=== PATIENT | female | born 1990 | race Caucasian/White ===

== ENCOUNTER 2016-10-23 14:58 | Emergency (ER) | payer OTHER ==
--- NOTE | 2016-10-23 15:16 | ED NURSING NOTES ---
Clinical Report - Nurses [facility] [address] [place] [place] [address] 10/23/2016 15:02 Patient: PARAM AGUAYO TRIAGE Triage time 15:07. Acuity: LEVEL 5. Chief Complaint: TOOTHACHE. Alert. No acute distress. GEN COMA SCORE: Gen Coma Scale: 15- eyes open spontaneously (4); best verbal response- oriented x 4 (5); best motor response- obeys commands (6). --15:14 Leanne South R.N. 15:07 10/23/16. BP: 119/66. HR: 98. RR: 18. O2 saturation: 99%. Temp: 98.3 F (oral). Pain level now: 03/12. --15:14 Leanne South R.N. Weight: 72.5 kg. Height/Length: 67 inches. BMI: 25.1. --15:13 Leanne South R.N. Medications Control Pills. --15:10 Leanne South R.N. Medication/allergy information source: the patient. --15:14 Leanne South R.N. Allergies No Known Drug Allergy. --15:10 Leanne South R.N. History Arrived by private vehicle. Historian: patient. Accompanied by (children). Primary physician (Steven). This started today. 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 PAST MEDICAL HX: Last normal menstrual period- Oct 2016. SOCIAL HX: Heavy tobacco smoker- less than 1 pack per day. Occasional alcohol use. No drug use. FALL RISK ASSESSMENT: Fall risk assessment completed. No fall risk identified. FUNCTIONAL ASSESSMENT: Functional assessment: no impairments noted. LEARNING NEEDS ASSESSMENT: The learning needs assessment revealed no barriers. --15:14 Leanne South R.N. PROBLEMS: Corneal Abrasion. Herpes Zoster. Fractured Metacarpal. Dysfunctional Uterine Bleeding. Contusion. Cervical Strain. Fall. Sick Contact. Head Injury. Headache. Sinusitis. Spontaneous (Miscarriage). Vaginal Bleeding. Dental Caries. Dental Pain. Tension-Type Headache. Chronic Headache. . Pharyngitis. Immunizations. LNMP - Last Normal Menstrual Period. Melanoma . --15:11 Leanne South R.N. ADDITIONAL SURGERIES: Melanoma removal . Tooth extraction. --15:11 Leanne South R.N. Assessment GENERAL / NEURO / PSYCH: Alert. Oriented X 4. Appears in no acute distress. Patient appears calm and cooperative. RESPIRATORY: Respirations not labored. SKIN: Skin is warm and dry. --15:14 Leanne South R.N. Interventions ID band on patient. To treatment room. --15:14 Leanne South R.N. PHYSICAL ASSESSMENT 15:18 10/23/16. Ambulatory to room. GENERAL / NEURO / PSYCH: Alert. Oriented X 4. Appears in no acute distress. RESPIRATORY: Respirations not labored. SKIN: Skin is warm and dry. --15:18 Leanne South R.N. NURSING PROGRESS NOTES 15:18 10/23/16. Head of bed elevated. Call light placed in reach. Side rails up x 1. Bed placed in lowest position. Brakes of bed on. --15:18 Leanne South R.N. 15:20 10/23/2016 Amoxicillin PO 500 mg given. --15:59 Leanne South R.N. 15:20. The patient is calm. Overall patient status is the same- she states feels the same. GENERAL / NEURO / PSYCH: Alert. Oriented X 4. RESPIRATORY: No respiratory distress. SKIN: Skin is warm and dry. --16:11 Leanne South R.N. DISPOSITION / DISCHARGE Departure time: 1520. Condition at departure: stable. No learning barriers present. Discharge instructions provided and reviewed with the patient. Reviewed medication(s). Prescription(s) given to the patient. Patient verbalized understanding. Written instructions provided in Indonesian. The patient was discharged home and accompanied by children. She left the Emergency Department ambulatory and via private vehicle. FALL RISK ASSESSMENT: Fall risk assessment completed. No fall risk identified. --16:10 Leanne South R.N. 15:29 10/23/16. Pain level now: 7/10. Additional comments: here under an hour. --16:10 Leanne South R.N. Locked/Released at 10/23/2016 16:12 by Leanne South R.N.
--- NOTE | 2016-10-23 15:16 | ED CLINICAL REPORT ---
Clinical Report - Physicians/Mid Levels [facility] [address] [place] [address] 10/23/2016 15:02 [id number] Time Seen: 15:04 Oct 23 2016. Arrived- By private vehicle. Historian- patient. HISTORY OF PRESENT ILLNESS Chief Complaint: DENTAL PAIN. This started just prior to arrival today and is still present. Pain described as mild. The patient has had toothache. (Dental pain over the last 24 hours, off and on, worse with cold to the area as well as air. Denies difficulty swallowing. Denies facial swelling. No recent dental appt or dental trauma.). REVIEW OF SYSTEMS No fever, cough, difficulty breathing, diarrhea or headache. All systems otherwise negative, except as recorded above. SOCIAL HISTORY Smoker- current status unknown. Alcohol use. No drug use. ADDITIONAL NOTES The nursing notes have been reviewed. PHYSICAL EXAM Vital Signs: 10/23/2016 15:07 BP: 119/66. HR: 98. RR: 18. O2 saturation: 99%. Temp: 98.3 F. Pain level now: 6/10. Appearance: Alert. Head: Normal external inspection. ENT: Dental tenderness. Lips normal. Gums normal. No tonsillar exudate, peritonsillar mass or trismus. (left upper canine tendernss, no surrounding erythema, no mass). Neck: Trachea midline. No adenopathy. No lymphadenopathy. CVS: Normal heart rate and rhythm. Heart sounds normal. Respiratory: No respiratory distress. Breath sounds normal. Neuro: Oriented X 3. PROGRESS AND PROCEDURES Course of Care: Uvula midline, no trismus, no facial swelling. No distress. pt stable. no palpable abscess. Afebrile. Patient is stable. Patient/family counseled. Differential Diagnosis: I considered palatine tonsillitis, mononucleosis, peritonsillar cellulitis, parapharyngeal abscess, sinusitis and foreign body as a possible cause of sore throat in this patient. This is a partial list of diagnoses considered. Disposition: Discharged. Condition: good. CLINICAL IMPRESSION Moderate dental pain. INSTRUCTIONS Drink plenty of fluids. Prescription Medications: Amoxicillin 500 mg tablets: Take 1 orally every 8 hours for 10 days. Dispense thirty (30). No refills. Follow-up: Follow up with a specialist. Understanding of the discharge instructions verbalized by patient. (Electronically signed by Sumi Kate P.A.-C 10/23/2016 15:35)
--- NOTE | 2016-10-23 15:16 | ED ORDER SUMMARY ---
..... Patient: PARAM AGUAYO OrderSheet [facility] VisitID: [id number] [address] [place] [address] [place] [address] 25y, F Registration Date/Time: 10/23/2016 ORDER SHEET Weight: 72.5 kg Allergies: No Known Drug Allergy GENERAL ORDERS: MEDICATION ORDERS: Amoxicillin PO 500 mg (NOW) (15:16 10/23/2016 Nicole Conrad) (Ack 15:18 Estee R.Miguel) (15:59 Estee Adorno.Miguel) IV FLUIDS: ORDER SHEET NOTES: [Electronically signed by Sumi Kate P.A.-C (15:35 10/23/2016)] [Electronically signed by Leanne South R.N. (16:12 10/23/2016)] [Electronically locked/signed by Leanne South R.N. (16:12 10/23/2016)]
--- NOTE | 2016-10-23 15:16 | ED ORDER SUMMARY ---
..... Patient: PARAM AGUAYO OrderSheet [facility] VisitID: [id number] [address] [place] [address] 25y, F Registration Date/Time: 10/23/2016 ORDER SHEET Weight: 72.5 kg Allergies: No Known Drug Allergy GENERAL ORDERS: MEDICATION ORDERS: Amoxicillin PO 500 mg (NOW) (15:16 10/23/2016 Nicole Conrad) (Ack 15:18 Estee R.Miguel) (15:59 Estee Adorno.Miguel) IV FLUIDS: ORDER SHEET NOTES: [Electronically signed by Sumi Kate P.A.-C (15:35 10/23/2016)] [Electronically signed by Leanne South R.N. (16:12 10/23/2016)] [Electronically locked/signed by Leanne South R.N. (16:12 10/23/2016)]
--- NOTE | 2016-10-23 15:16 | ED CLINICAL REPORT ---
Clinical Report - Physicians/Mid Levels [facility] [address] [place] [place] [address] 10/23/2016 15:02 [id number] Time Seen: 15:04 Oct 23 2016. Arrived- By private vehicle. Historian- patient. HISTORY OF PRESENT ILLNESS Chief Complaint: DENTAL PAIN. This started just prior to arrival today and is still present. Pain described as mild. The patient has had toothache. (Dental pain over the last 24 hours, off and on, worse with cold to the area as well as air. Denies difficulty swallowing. Denies facial swelling. No recent dental appt or dental trauma.). REVIEW OF SYSTEMS No fever, cough, difficulty breathing, diarrhea or headache. All systems otherwise negative, except as recorded above. SOCIAL HISTORY Smoker- current status unknown. Alcohol use. No drug use. ADDITIONAL NOTES The nursing notes have been reviewed. PHYSICAL EXAM Vital Signs: 10/23/2016 15:07 BP: 119/66. HR: 98. RR: 18. O2 saturation: 99%. Temp: 98.3 F. Pain level now: 6/10. Appearance: Alert. Head: Normal external inspection. ENT: Dental tenderness. Lips normal. Gums normal. No tonsillar exudate, peritonsillar mass or trismus. (left upper canine tendernss, no surrounding erythema, no mass). Neck: Trachea midline. No adenopathy. No lymphadenopathy. CVS: Normal heart rate and rhythm. Heart sounds normal. Respiratory: No respiratory distress. Breath sounds normal. Neuro: Oriented X 3. PROGRESS AND PROCEDURES Course of Care: Uvula midline, no trismus, no facial swelling. No distress. pt stable. no palpable abscess. Afebrile. Patient is stable. Patient/family counseled. Differential Diagnosis: I considered palatine tonsillitis, mononucleosis, peritonsillar cellulitis, parapharyngeal abscess, sinusitis and foreign body as a possible cause of sore throat in this patient. This is a partial list of diagnoses considered. Disposition: Discharged. Condition: good. CLINICAL IMPRESSION Moderate dental pain. INSTRUCTIONS Drink plenty of fluids. Prescription Medications: Amoxicillin 500 mg tablets: Take 1 orally every 8 hours for 10 days. Dispense thirty (30). No refills. Follow-up: Follow up with a specialist. Understanding of the discharge instructions verbalized by patient. (Electronically signed by Sumi Kate P.A.-C 10/23/2016 15:35)
--- NOTE | 2016-10-23 15:16 | ED NURSING NOTES ---
Clinical Report - Nurses [facility] [address] [place] [place] [address] 10/23/2016 15:02 Patient: PARAM AGUAYO TRIAGE Triage time 15:07. Acuity: LEVEL 5. Chief Complaint: TOOTHACHE. Alert. No acute distress. GEN COMA SCORE: Gen Coma Scale: 15- eyes open spontaneously (4); best verbal response- oriented x 4 (5); best motor response- obeys commands (6). --15:14 Leanne South R.N. 15:07 10/23/16. BP: 119/66. HR: 98. RR: 18. O2 saturation: 99%. Temp: 98.3 F (oral). Pain level now: 03/12. --15:14 Leanne South R.N. Weight: 72.5 kg. Height/Length: 67 inches. BMI: 25.1. --15:13 Leanne South R.N. Medications Control Pills. --15:10 Leanne South R.N. Medication/allergy information source: the patient. --15:14 Leanne South R.N. Allergies No Known Drug Allergy. --15:10 Leanne South R.N. History Arrived by private vehicle. Historian: patient. Accompanied by (children). Primary physician (Steven). This started today. 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 PAST MEDICAL HX: Last normal menstrual period- Oct 2016. SOCIAL HX: Heavy tobacco smoker- less than 1 pack per day. Occasional alcohol use. No drug use. FALL RISK ASSESSMENT: Fall risk assessment completed. No fall risk identified. FUNCTIONAL ASSESSMENT: Functional assessment: no impairments noted. LEARNING NEEDS ASSESSMENT: The learning needs assessment revealed no barriers. --15:14 Leanne South R.N. PROBLEMS: Corneal Abrasion. Herpes Zoster. Fractured Metacarpal. Dysfunctional Uterine Bleeding. Contusion. Cervical Strain. Fall. Sick Contact. Head Injury. Headache. Sinusitis. Spontaneous (Miscarriage). Vaginal Bleeding. Dental Caries. Dental Pain. Tension-Type Headache. Chronic Headache. . Pharyngitis. Immunizations. LNMP - Last Normal Menstrual Period. Melanoma . --15:11 Leanne South R.N. ADDITIONAL SURGERIES: Melanoma removal . Tooth extraction. --15:11 Leanne South R.N. Assessment GENERAL / NEURO / PSYCH: Alert. Oriented X 4. Appears in no acute distress. Patient appears calm and cooperative. RESPIRATORY: Respirations not labored. SKIN: Skin is warm and dry. --15:14 Leanne South R.N. Interventions ID band on patient. To treatment room. --15:14 Leanne South R.N. PHYSICAL ASSESSMENT 15:18 10/23/16. Ambulatory to room. GENERAL / NEURO / PSYCH: Alert. Oriented X 4. Appears in no acute distress. RESPIRATORY: Respirations not labored. SKIN: Skin is warm and dry. --15:18 Leanne South R.N. NURSING PROGRESS NOTES 15:18 10/23/16. Head of bed elevated. Call light placed in reach. Side rails up x 1. Bed placed in lowest position. Brakes of bed on. --15:18 Leanne South R.N. 15:20 10/23/2016 Amoxicillin PO 500 mg given. --15:59 Leanne South R.N. 15:20. The patient is calm. Overall patient status is the same- she states feels the same. GENERAL / NEURO / PSYCH: Alert. Oriented X 4. RESPIRATORY: No respiratory distress. SKIN: Skin is warm and dry. --16:11 Leanne South R.N. DISPOSITION / DISCHARGE Departure time: 1520. Condition at departure: stable. No learning barriers present. Discharge instructions provided and reviewed with the patient. Reviewed medication(s). Prescription(s) given to the patient. Patient verbalized understanding. Written instructions provided in Italian. The patient was discharged home and accompanied by children. She left the Emergency Department ambulatory and via private vehicle. FALL RISK ASSESSMENT: Fall risk assessment completed. No fall risk identified. --16:10 Leanne South R.N. 15:29 10/23/16. Pain level now: 7/10. Additional comments: here under an hour. --16:10 Leanne South R.N. Locked/Released at 10/23/2016 16:12 by Leanne South R.N.
--- NOTE | 2016-10-23 16:12 | ED MAR SUMMARY ---
..... Medication Administration Record [address] [place] [address] Patient: PARAM AGUAYO Visit ID: [id number] 25y, F Weight: 72.5 kg Height/Length: 67 in BMI: 25.1 ALLERGIES: No Known Drug Allergy Given 15:20 10/23/2016 Leanne South RTalita Medication Administered: AMOXICILLIN [PO], Dose: 500 mg PO. Medication Ordered: Amoxicillin PO 500 mg (NOW).
--- NOTE | 2016-10-23 16:12 | ED MED RECONCILIATION SUMMARY ---
Patient: PARAM AGUAYO Medication Reconciliation Report [facility] VisitID: [id number] [address] [place] [address] 25y, F Registration Date/Time: 10/23/2016 Weight: 72.5 kg Height/Length: 67 in. BMI: 25.1 ALLERGIES: No Known Drug Allergy The patient's Home Medications are listed below: THE FOLLOWING MEDICATIONS NEED TO BE RECONCILED: Control Pills The source(s) of the original Home Medication information: patient The following Medications were given to the patient in the Emergency Department: Amoxicillin [PO] PO 500 mg, administered: 10/23/2016 3:20:00 PM The following Medications were prescribed to the patient: Amoxicillin 500 mg tablets: Take 1 orally every 8 hours for 10 days. Dispense thirty (30). No refills. -- Sumi Kate P.A.-C
--- NOTE | 2016-10-23 16:12 | ED DISCHARGE INSTRUCTIONS ---
Patient: PARAM AGUAYO General Instructions [facility] VisitID: [id number] [place] [address] 25[place], F Registration Date/Time: 10/23/2016 Moderate dental pain. INSTRUCTIONS Drink plenty of fluids. Prescription Medications: Amoxicillin 500 mg tablets: Take 1 orally every 8 hours for 10 days. Dispense thirty (30). No refills. Follow-up: Follow up with a specialist. Understanding of the discharge instructions verbalized by patient. ADDITIONAL INFORMATION Dental Pain A crack or cavity in the tooth, which exposes the sensitive inner area of the tooth can cause tooth pain. An infection in the gum or the root of the tooth can cause pain and swelling. The pain is often made worse by drinking hot or cold fluids, or biting on hard foods. Pain may spread from the tooth to the ear or jaw on the same side. Home Care: Avoid hot and cold foods and liquids since your tooth may be sensitive to temperature changes. If your tooth is chipped or cracked, or if there is a large open cavity, apply OIL OF CLOVES (available tzxb-qhz-wznsdzt in drug stores) directly to the tooth to reduce pain. Some pharmacies carry an sehc-zay-kpnzyjy "toothache kit." This contains a paste, which can be applied over the exposed tooth to decrease sensitivity. A cold pack on your jaw over the sore area may help reduce pain. You may use acetaminophen (Tylenol) or ibuprofen (Motrin, Advil) to control pain, unless another medicine was prescribed. [ NOTE: If you have chronic liver or kidney disease or ever had a stomach ulcer or GI bleeding, talk with your doctor before using these medicines.] If you have signs of an infection, an antibiotic will be given. Take it as directed. Follow-Up as directed with a dentist. Your pain may go away with the treatment given. However, only a dentist can fully evaluate and treat the cause and prevent the pain from coming back again. TOOTHACHE IS A SIGN OF DISEASE IN YOUR TOOTH AND SHOULD BE EXAMINED AND TREATED BY A DENTIST. Get Prompt Medical Attention if any of the following occur: Your face becomes swollen or red Pain worsens or spreads to the neck Fever over 100.4 F (38.0 C) Unusual drowsiness; headache or stiff neck; weakness or fainting Pus drains from the tooth Difficulty swallowing or breathing You have been given the following additional information: Dental Pain (Electronically signed by Sumi Kate P.A.-C 10/23/2016 15:35)
--- NOTE | 2016-10-23 16:12 | ED DISCHARGE INSTRUCTIONS ---
Patient: PARAM AGUAYO General Instructions [facility] VisitID: [id number] [place] [address] 25y, F Registration Date/Time: 10/23/2016 Moderate dental pain. INSTRUCTIONS Drink plenty of fluids. Prescription Medications: Amoxicillin 500 mg tablets: Take 1 orally every 8 hours for 10 days. Dispense thirty (30). No refills. Follow-up: Follow up with a specialist. Understanding of the discharge instructions verbalized by patient. ADDITIONAL INFORMATION Dental Pain A crack or cavity in the tooth, which exposes the sensitive inner area of the tooth can cause tooth pain. An infection in the gum or the root of the tooth can cause pain and swelling. The pain is often made worse by drinking hot or cold fluids, or biting on hard foods. Pain may spread from the tooth to the ear or jaw on the same side. Home Care: Avoid hot and cold foods and liquids since your tooth may be sensitive to temperature changes. If your tooth is chipped or cracked, or if there is a large open cavity, apply OIL OF CLOVES (available njqr-mwb-wcgxytu in drug stores) directly to the tooth to reduce pain. Some pharmacies carry an cluk-abk-aebtkat "toothache kit." This contains a paste, which can be applied over the exposed tooth to decrease sensitivity. A cold pack on your jaw over the sore area may help reduce pain. You may use acetaminophen (Tylenol) or ibuprofen (Motrin, Advil) to control pain, unless another medicine was prescribed. [ NOTE: If you have chronic liver or kidney disease or ever had a stomach ulcer or GI bleeding, talk with your doctor before using these medicines.] If you have signs of an infection, an antibiotic will be given. Take it as directed. Follow-Up as directed with a dentist. Your pain may go away with the treatment given. However, only a dentist can fully evaluate and treat the cause and prevent the pain from coming back again. TOOTHACHE IS A SIGN OF DISEASE IN YOUR TOOTH AND SHOULD BE EXAMINED AND TREATED BY A DENTIST. Get Prompt Medical Attention if any of the following occur: Your face becomes swollen or red Pain worsens or spreads to the neck Fever over 100.4 F (38.0 C) Unusual drowsiness; headache or stiff neck; weakness or fainting Pus drains from the tooth Difficulty swallowing or breathing You have been given the following additional information: Dental Pain (Electronically signed by Sumi Kate P.A.-C 10/23/2016 15:35)
--- NOTE | 2016-10-23 16:12 | ED MAR SUMMARY ---
..... Medication Administration Record [address] [place] [address] Patient: PARAM AGUAYO Visit ID: [id number] 25y, F Weight: 72.5 kg Height/Length: 67 in BMI: 25.1 ALLERGIES: No Known Drug Allergy Given 15:20 10/23/2016 Leanne South RTalita Medication Administered: AMOXICILLIN [PO], Dose: 500 mg PO. Medication Ordered: Amoxicillin PO 500 mg (NOW).
--- NOTE | 2016-10-23 16:12 | ED MED RECONCILIATION SUMMARY ---
Patient: PARAM AGUAYO Medication Reconciliation Report [facility] VisitID: [id number] [address] [place] [address] 25y, F Registration Date/Time: 10/23/2016 Weight: 72.5 kg Height/Length: 67 in. BMI: 25.1 ALLERGIES: No Known Drug Allergy The patient's Home Medications are listed below: THE FOLLOWING MEDICATIONS NEED TO BE RECONCILED: Control Pills The source(s) of the original Home Medication information: patient The following Medications were given to the patient in the Emergency Department: Amoxicillin [PO] PO 500 mg, administered: 10/23/2016 3:20:00 PM The following Medications were prescribed to the patient: Amoxicillin 500 mg tablets: Take 1 orally every 8 hours for 10 days. Dispense thirty (30). No refills. -- Sumi Kate P.A.-C
== END 2016-10-23 15:20 | disposition home or self-care (01) ==
LOC: ED SRH 14:58
DX: K08.89 Other specified disorders of teeth and supporting structures (principal)

== ENCOUNTER 2017-02-19 10:56 | Emergency (ER) | payer OTHER ==
--- NOTE | 2017-02-19 11:44 | ED CLINICAL REPORT ---
Clinical Report - Physicians/Mid Levels [facility] [address] [place] [address] 02/19/2017 10:57 Patient: PARAM AGUAYO Time Seen: 11:06; initial patient contact. Arrived- By private vehicle. Historian- patient. HISTORY OF PRESENT ILLNESS Chief Complaint: SORE THROAT. This started today and is still present (persistent). It was gradual in onset and has been constant. Pain described as mild. The patient has had a sore throat and ear pain. No nasal discharge or congestion, toothache or swollen jaw or face. No jaw pain or facial pain. Similar symptoms previously: Several times. Recent medical care: Not recently seen/assessed. REVIEW OF SYSTEMS No fever, cough, difficulty breathing, headache or skin rash. All systems otherwise negative, except as recorded above. PAST HISTORY Corneal Abrasion. Herpes Zoster. Fractured Metacarpal. Dysfunctional Uterine Bleeding. Contusion. Cervical Strain. Fall. Sick Contact. Head Injury. Headache. Sinusitis. Spontaneous (Miscarriage). Vaginal Bleeding. Dental Caries. Dental Pain. Tension-Type Headache. Chronic Headache. . Pharyngitis. Melanoma . ADDITIONAL SURGERIES: Melanoma removal . Tooth extraction. SOCIAL HISTORY Current every day smoker. History of drug use: marijuana. No alcohol use. ADDITIONAL NOTES The nursing notes have been reviewed. PHYSICAL EXAM Vital Signs: 02/19/2017 11:04 BP: 126/65. HR: 92. RR: 16. O2 saturation: 100%. Temp: 98.5 F. Pain level now: 6/10. Have been reviewed as normal. Appearance: Alert. No acute distress. Head: Normal external inspection. ENT: Ears normal. Mild generalized pharyngeal erythema with right tonsillar swelling and exudate and left tonsillar swelling and exudate. No trismus present. No muffled or hoarse voice. The mucous membranes are not dry. Neck: Mild right anterior neck and mild left anterior neck lymphadenopathy present. CVS: Normal heart rate and rhythm. Heart sounds normal. Skin: Normal skin color. No rash. Neuro: Oriented X 3. LABS, X-RAYS, AND EKG Laboratory Tests: Culture, Strep Screen: (LILLIAM: 02/19/2017 11:15) ( [id number] 02/19/2017 11:27) Final results Test Result Flag Units (Reference) RAPID STREP SCREEN - THROAT DATE: 02/19/17 POSITIVE SCREEN: RAPID STREP SCREEN: POSITIVE FOR GROUP A STREP . PROGRESS AND PROCEDURES Disposition: Discharged home in good condition. Condition: good. CLINICAL IMPRESSION Acute streptococcal pharyngitis INSTRUCTIONS Your Current Medications: CONTINUE TAKING THE FOLLOWING MEDICATIONS: None*. Prescription Medications: Penicillin V 500 mg: take 1 tab orally every 12 hours for 10 days. Dispense twenty (20). No refills. Follow-up: Follow up with your doctor in about two days. Call for an appointment. Screening today revealed the patient's blood pressure to be in the pre-hypertensive range. The patient should follow up with a primary care provider for blood pressure management. (Electronically signed by José Luis Ryan Dr. 02/19/2017 12:03)
--- NOTE | 2017-02-19 11:44 | ED ORDER SUMMARY ---
..... Patient: PARAM AGUAYO OrderSheet [facility] VisitID: [id number] [address] [place] [place] [address] 26y, F Registration Date/Time: 02/19/2017 ORDER SHEET Weight: 68.0 kg (stated) Allergies: No Known Drug Allergy GENERAL ORDERS: Culture, Strep Screen Urgent (11:15 02/19/2017 Paola Emanuel) (11:19 Caroline R.N.) MEDICATION ORDERS: Depo-Medrol IM 80 mg (NOW) (11:02/19/2017 Paola Emanuel) (11:38 Caroline R.N.) IV FLUIDS: ORDER SHEET NOTES: [Electronically signed by José Luis Ryan Dr. (12:03 02/19/2017)] [Electronically signed by Harpreet Vázquez R.N. (12:02/19/2017)] [Electronically locked/signed by Harpreet Vázquez R.N. (12:02/19/2017)]
--- NOTE | 2017-02-19 11:44 | ED ORDER SUMMARY ---
..... Patient: PARAM AGUAYO OrderSheet [facility] VisitID: [id number] [address] [place] [address] 26y, F Registration Date/Time: 02/19/2017 ORDER SHEET Weight: 68.0 kg (stated) Allergies: No Known Drug Allergy GENERAL ORDERS: Culture, Strep Screen Urgent (11:15 02/19/2017 Paola Emanuel) (11:19 Caroline R.N.) MEDICATION ORDERS: Depo-Medrol IM 80 mg (NOW) (11:02/19/2017 Paola Emanuel) (11:38 Caroline R.N.) IV FLUIDS: ORDER SHEET NOTES: [Electronically signed by José Luis Ryan Dr. (12:03 02/19/2017)] [Electronically signed by Harpreet Vázquez R.N. (12:02/19/2017)] [Electronically locked/signed by Harpreet Vázquez R.N. (12:02/19/2017)]
--- NOTE | 2017-02-19 11:44 | ED NURSING NOTES ---
Clinical Report - Nurses [facility] [address] [place] [place] [address] 02/19/2017 10:57 Patient: PARAM AGUAYO TRIAGE Triage time 11:Feb 19 2017. Acuity: LEVEL 4. Chief Complaint: SORE THROAT. Alert. No acute distress. SEPSIS SCREEN: Sepsis Screen. Negative (no infection suspected/documented). GEN COMA SCORE: Gen Coma Scale: 15- eyes open spontaneously (4); best verbal response- oriented x 4 (5); best motor response- obeys commands (6). --11:08 Sarahy Barrientos R.N. 11:04 02/19/17. BP: 126/65. HR: 92. RR: 16. O2 saturation: 100%. Temp: 98.5 F. Pain level now: 03/12. --11:08 Sarahy Barrientos R.N. Weight: 68 kg stated. Height/Length: 67 inches Per Patient. BMI: 23.5. --11:06 Sarahy Barrientos R.N. Medications None. --11:04 Sarahy Barrientos R.N. Medication/allergy information source: the patient. --11:08 Sarahy Barrientos R.N. Allergies No Known Drug Allergy. --11:04 Sarahy Barrientos R.N. History Arrived by private vehicle. Historian: patient. Accompanied by family. This started today. She has had moderate right ear pain and has had moderate left ear pain. 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 PAST MEDICAL HX: Immunizations: up-to-date. Last normal menstrual period now. Denies current . SOCIAL HX: Current every day heavy tobacco smoker (cigarette)- less than 1 pack per day. History of occasional drug use: marijuana. No alcohol use. No infectious disease exposure. SELF HARM ASSESSMENT: A self harm assessment was performed. The patient answered "no" to the question "Do you have thoughts of harming or killing yourself?". FALL RISK ASSESSMENT: Fall risk assessment completed. No fall risk identified. NUTRITIONAL RISK ASSESSMENT: The nutritional risk assessment revealed no deficiencies. FUNCTIONAL ASSESSMENT: Functional assessment: no impairments noted. LEARNING NEEDS ASSESSMENT: The learning needs assessment revealed no barriers. ABUSE ASSESSMENT: Abuse assessment: The patient was asked "Do you feel safe in your home?". SKIN INTEGRITY ASSESSMENT: Skin integrity risk assessment completed. No skin integrity risk identified. --11:08 Sarahy Barrientos R.N. PROBLEMS: Corneal Abrasion. Herpes Zoster. Fractured Metacarpal. Dysfunctional Uterine Bleeding. Contusion. Cervical Strain. Fall. Sick Contact. Head Injury. Headache. Sinusitis. Spontaneous (Miscarriage). Vaginal Bleeding. Dental Caries. Dental Pain. Tension-Type Headache. Chronic Headache. . Pharyngitis. Immunizations. LNMP - Last Normal Menstrual Period. Melanoma . --11:05 Sarahy Barrientos R.N. ADDITIONAL SURGERIES: Melanoma removal . Tooth extraction. --11:05 Sarahy Barrientos R.N. Interventions ID band on patient. To room. --11:08 Sarahy Barrientos R.N. PHYSICAL ASSESSMENT GENERAL / NEURO / PSYCH: Alert. Oriented X 4. Appears in no acute distress. HEENT: Right-sided tonsillar swelling. Left-sided tonsillar swelling. Trouble handling secretions (c/o drooling). Mouth within normal limits upon inspection. RESPIRATORY: Respirations not labored. CVS: Capillary refill less than 2 seconds. SKIN: Skin is warm and dry. --11:10 Sarahy Barrientos R.N. NURSING PROGRESS NOTES Head of bed elevated. Two patient identifiers checked. Call light placed in reach. Side rails up x 1. Bed placed in lowest position. Brakes of bed on. --11:10 Sarahy Barrientos R.N. Patient ID band checked for patient name and birthdate: patient confirmed. Throat swab obtained for rapid strep; labeled in the presence of the patient and sent to lab. --11:13 Sarahy Barrientos R.N. 11:38 02/19/2017 Depo-Medrol IM 80 mg given. Given in the right anterior lateral thigh. Allergies verified and confirmed 5 rights. --11:38 Sarahy Barrientos R.N. 12:04 02/19/2017 Depo-Medrol IM Response: no adverse reaction. --12:04 Harpreet Vázquez R.N. DISPOSITION / DISCHARGE Departure time: 1202. Condition at departure: stable. The goals identified in the patient's plan of care were met. No learning barriers present. Discharge instructions provided and reviewed with the patient. Reviewed medication(s) side effects, precautions, dosing and course information (Param verbalizes importance of finishing all prescribed antbx.). Patient verbalized understanding. Written instructions provided in German. ( Param verbalizes understanding of all d/c instructions including need to f/u with PCP. She has no questions and voices no concerns at this time.). The patient was discharged by the physician. She was discharged home and unaccompanied at time of discharge. She left the Emergency Department ambulatory and via private vehicle. [employer] driving. GEN COMA SCORE: [place] Coma Scale: 15- eyes open spontaneously (4); best verbal response- oriented x 4 (5); best motor response- obeys commands (6). --12:04 Harpreet Vázquez R.N. 12:02 02/19/17. BP: 113/73 (regular adult cuff) taken on the left arm, via an automated monitor, while sitting. HR: 73 (normal rate). RR: 14 (regular, unlabored and normal). O2 saturation: 98% on room air. Temp: 98.7 F (oral). Pain level now: 5/10. --12:04 Harpreet Vázquez R.N. Locked/Released at 02/19/2017 12:04 by Harpreet Vázquez R.N.
--- NOTE | 2017-02-19 11:44 | ED NURSING NOTES ---
Clinical Report - Nurses [facility] [address] [place] [place] [address] 02/19/2017 10:57 Patient: PARAM AGUAYO TRIAGE Triage time 11:Feb 19 2017. Acuity: LEVEL 4. Chief Complaint: SORE THROAT. Alert. No acute distress. SEPSIS SCREEN: Sepsis Screen. Negative (no infection suspected/documented). GEN COMA SCORE: Gen Coma Scale: 15- eyes open spontaneously (4); best verbal response- oriented x 4 (5); best motor response- obeys commands (6). --11:08 Sarahy Barrientos R.N. 11:04 02/19/17. BP: 126/65. HR: 92. RR: 16. O2 saturation: 100%. Temp: 98.5 F. Pain level now: 03/12. --11:08 Sarahy Barrientos R.N. Weight: 68 kg stated. Height/Length: 67 inches Per Patient. BMI: 23.5. --11:06 Sarahy Barrientos R.N. Medications None. --11:04 Sarahy Barrientos R.N. Medication/allergy information source: the patient. --11:08 Sarahy Barrientos R.N. Allergies No Known Drug Allergy. --11:04 Sarahy Barrientos R.N. History Arrived by private vehicle. Historian: patient. Accompanied by family. This started today. She has had moderate right ear pain and has had moderate left ear pain. 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 PAST MEDICAL HX: Immunizations: up-to-date. Last normal menstrual period now. Denies current . SOCIAL HX: Current every day heavy tobacco smoker (cigarette)- less than 1 pack per day. History of occasional drug use: marijuana. No alcohol use. No infectious disease exposure. SELF HARM ASSESSMENT: A self harm assessment was performed. The patient answered "no" to the question "Do you have thoughts of harming or killing yourself?". FALL RISK ASSESSMENT: Fall risk assessment completed. No fall risk identified. NUTRITIONAL RISK ASSESSMENT: The nutritional risk assessment revealed no deficiencies. FUNCTIONAL ASSESSMENT: Functional assessment: no impairments noted. LEARNING NEEDS ASSESSMENT: The learning needs assessment revealed no barriers. ABUSE ASSESSMENT: Abuse assessment: The patient was asked "Do you feel safe in your home?". SKIN INTEGRITY ASSESSMENT: Skin integrity risk assessment completed. No skin integrity risk identified. --11:08 Sarahy Barrientos R.N. PROBLEMS: Corneal Abrasion. Herpes Zoster. Fractured Metacarpal. Dysfunctional Uterine Bleeding. Contusion. Cervical Strain. Fall. Sick Contact. Head Injury. Headache. Sinusitis. Spontaneous (Miscarriage). Vaginal Bleeding. Dental Caries. Dental Pain. Tension-Type Headache. Chronic Headache. . Pharyngitis. Immunizations. LNMP - Last Normal Menstrual Period. Melanoma . --11:05 Sarahy Barrientos R.N. ADDITIONAL SURGERIES: Melanoma removal . Tooth extraction. --11:05 Sarahy Barrientos R.N. Interventions ID band on patient. To room. --11:08 Sarahy Barrientos R.N. PHYSICAL ASSESSMENT GENERAL / NEURO / PSYCH: Alert. Oriented X 4. Appears in no acute distress. HEENT: Right-sided tonsillar swelling. Left-sided tonsillar swelling. Trouble handling secretions (c/o drooling). Mouth within normal limits upon inspection. RESPIRATORY: Respirations not labored. CVS: Capillary refill less than 2 seconds. SKIN: Skin is warm and dry. --11:10 Sarahy Barrientos R.N. NURSING PROGRESS NOTES Head of bed elevated. Two patient identifiers checked. Call light placed in reach. Side rails up x 1. Bed placed in lowest position. Brakes of bed on. --11:10 Sarahy Barrientos R.N. Patient ID band checked for patient name and birthdate: patient confirmed. Throat swab obtained for rapid strep; labeled in the presence of the patient and sent to lab. --11:13 Sarahy Barrientos R.N. 11:38 02/19/2017 Depo-Medrol IM 80 mg given. Given in the right anterior lateral thigh. Allergies verified and confirmed 5 rights. --11:38 Sarahy Barrientos R.N. 12:04 02/19/2017 Depo-Medrol IM Response: no adverse reaction. --12:04 Harpreet Vázquez R.N. DISPOSITION / DISCHARGE Departure time: 1202. Condition at departure: stable. The goals identified in the patient's plan of care were met. No learning barriers present. Discharge instructions provided and reviewed with the patient. Reviewed medication(s) side effects, precautions, dosing and course information (Param verbalizes importance of finishing all prescribed antbx.). Patient verbalized understanding. Written instructions provided in Divehi. ( Param verbalizes understanding of all d/c instructions including need to f/u with PCP. She has no questions and voices no concerns at this time.). The patient was discharged by the physician. She was discharged home and unaccompanied at time of discharge. She left the Emergency Department ambulatory and via private vehicle. Director Gift driving. GEN COMA SCORE: [place] Coma Scale: 15- eyes open spontaneously (4); best verbal response- oriented x 4 (5); best motor response- obeys commands (6). --12:04 Harpreet Vázquez R.N. 12:02 02/19/17. BP: 113/73 (regular adult cuff) taken on the left arm, via an automated monitor, while sitting. HR: 73 (normal rate). RR: 14 (regular, unlabored and normal). O2 saturation: 98% on room air. Temp: 98.7 F (oral). Pain level now: 5/10. --12:04 Harpreet Vázquez R.N. Locked/Released at 02/19/2017 12:04 by Harpreet Vázquez R.N.
--- NOTE | 2017-02-19 11:44 | ED CLINICAL REPORT ---
Clinical Report - Physicians/Mid Levels [facility] [address] [place] [address] 02/19/2017 10:57 Patient: PARAM AGUAYO Time Seen: 11:06; initial patient contact. Arrived- By private vehicle. Historian- patient. HISTORY OF PRESENT ILLNESS Chief Complaint: SORE THROAT. This started today and is still present (persistent). It was gradual in onset and has been constant. Pain described as mild. The patient has had a sore throat and ear pain. No nasal discharge or congestion, toothache or swollen jaw or face. No jaw pain or facial pain. Similar symptoms previously: Several times. Recent medical care: Not recently seen/assessed. REVIEW OF SYSTEMS No fever, cough, difficulty breathing, headache or skin rash. All systems otherwise negative, except as recorded above. PAST HISTORY Corneal Abrasion. Herpes Zoster. Fractured Metacarpal. Dysfunctional Uterine Bleeding. Contusion. Cervical Strain. Fall. Sick Contact. Head Injury. Headache. Sinusitis. Spontaneous (Miscarriage). Vaginal Bleeding. Dental Caries. Dental Pain. Tension-Type Headache. Chronic Headache. . Pharyngitis. Melanoma . ADDITIONAL SURGERIES: Melanoma removal . Tooth extraction. SOCIAL HISTORY Current every day smoker. History of drug use: marijuana. No alcohol use. ADDITIONAL NOTES The nursing notes have been reviewed. PHYSICAL EXAM Vital Signs: 02/19/2017 11:04 BP: 126/65. HR: 92. RR: 16. O2 saturation: 100%. Temp: 98.5 F. Pain level now: 6/10. Have been reviewed as normal. Appearance: Alert. No acute distress. Head: Normal external inspection. ENT: Ears normal. Mild generalized pharyngeal erythema with right tonsillar swelling and exudate and left tonsillar swelling and exudate. No trismus present. No muffled or hoarse voice. The mucous membranes are not dry. Neck: Mild right anterior neck and mild left anterior neck lymphadenopathy present. CVS: Normal heart rate and rhythm. Heart sounds normal. Skin: Normal skin color. No rash. Neuro: Oriented X 3. LABS, X-RAYS, AND EKG Laboratory Tests: Culture, Strep Screen: (LILLIAM: 02/19/2017 11:15) ( MsgRcvd 02/19/2017 11:27) Final results Test Result Flag Units (Reference) RAPID STREP SCREEN - THROAT DATE: 02/19/17 POSITIVE SCREEN: RAPID STREP SCREEN: POSITIVE FOR GROUP A STREP . PROGRESS AND PROCEDURES Disposition: Discharged home in good condition. Condition: good. CLINICAL IMPRESSION Acute streptococcal pharyngitis INSTRUCTIONS Your Current Medications: CONTINUE TAKING THE FOLLOWING MEDICATIONS: None*. Prescription Medications: Penicillin V 500 mg: take 1 tab orally every 12 hours for 10 days. Dispense twenty (20). No refills. Follow-up: Follow up with your doctor in about two days. Call for an appointment. Screening today revealed the patient's blood pressure to be in the pre-hypertensive range. The patient should follow up with a primary care provider for blood pressure management. (Electronically signed by José Luis Ryan Dr. 02/19/2017 12:03)
--- NOTE | 2017-02-19 12:04 | ED MED RECONCILIATION SUMMARY ---
Patient: PARAM AGUAYO Medication Reconciliation Report [facility] VisitID: [id number] [address] [place] [address] 26y, F Registration Date/Time: 02/19/2017 Weight: 68.0 kg Height/Length: 67 in. BMI: 23.5 ALLERGIES: No Known Drug Allergy The patient's Home Medications are listed below: NONE. The source(s) of the original Home Medication information: patient The following Medications were given to the patient in the Emergency Department: Depo-Medrol [IM] IM 80 mg, administered: 02/19/2017 11:38:00 AM The following Medications were prescribed to the patient: Penicillin V 500 mg: take 1 tab orally every 12 hours for 10 days. Dispense twenty (20). No refills. -- José Luis Ryan Dr.
--- NOTE | 2017-02-19 12:04 | ED MAR SUMMARY ---
..... Medication Administration Record [facility] [address] [place] [address] Patient: PARAM AGUAYO Visit ID: [id number] 26y, F Weight: 68.0 kg Height/Length: 67 in BMI: 23.5 ALLERGIES: No Known Drug Allergy Given 11:38 02/19/2017 Sarahy Barrientos RTalita Medication Administered: DEPO-MEDROL [IM], Dose: 80 mg IM. Medication Ordered: Depo-Medrol IM 80 mg (NOW).
--- NOTE | 2017-02-19 12:04 | ED MED RECONCILIATION SUMMARY ---
Patient: PARAM AGUAYO Medication Reconciliation Report [facility] VisitID: [id number] [address] [place] [address] 26y, F Registration Date/Time: 02/19/2017 Weight: 68.0 kg Height/Length: 67 in. BMI: 23.5 ALLERGIES: No Known Drug Allergy The patient's Home Medications are listed below: NONE. The source(s) of the original Home Medication information: patient The following Medications were given to the patient in the Emergency Department: Depo-Medrol [IM] IM 80 mg, administered: 02/19/2017 11:38:00 AM The following Medications were prescribed to the patient: Penicillin V 500 mg: take 1 tab orally every 12 hours for 10 days. Dispense twenty (20). No refills. -- José Luis Ryan Dr.
--- NOTE | 2017-02-19 12:04 | ED MAR SUMMARY ---
..... Medication Administration Record [facility] [address] [place] [address] Patient: PARAM AGUAYO Visit ID: [id number] 26y, F Weight: 68.0 kg Height/Length: 67 in BMI: 23.5 ALLERGIES: No Known Drug Allergy Given 11:38 02/19/2017 Sarahy Barrientos RTalita Medication Administered: DEPO-MEDROL [IM], Dose: 80 mg IM. Medication Ordered: Depo-Medrol IM 80 mg (NOW).
--- NOTE | 2017-02-19 12:04 | ED DISCHARGE INSTRUCTIONS ---
Patient: PARAM AGUAYO General Instructions [facility] VisitID: [id number] [address] [place] [address] 26y, F Registration Date/Time: 02/19/2017 Acute streptococcal pharyngitis INSTRUCTIONS Your Current Medications: CONTINUE TAKING THE FOLLOWING MEDICATIONS: None*. Prescription Medications: Penicillin V 500 mg: take 1 tab orally every 12 hours for 10 days. Dispense twenty (20). No refills. Follow-up: Follow up with your doctor in about two days. Call for an appointment. Screening today revealed the patient's blood pressure to be in the pre-hypertensive range. The patient should follow up with a primary care provider for blood pressure management. ADDITIONAL INFORMATION Pharyngitis: Strep [Confirmed] Your test for strep throat was positive. Strep throat is a contagious illness. It is spread by coughing, kissing or by touching others after touching your mouth or nose. Symptoms include throat pain which is worse with swallowing, aching all over, headache and fever. You will be treated with an antibiotic which should make you start to feel better within 1-2 days. Home Care: Rest at home and drink plenty of fluids to avoid dehydration. No school or work for the first two days on antibiotics. You will not be contagious after this time and if you are feeling better, you can return to school or work. Take your antibiotics for a full 10 days, even if you feel better after the first few days of treatment. This is very important to prevent heart or kidney disease that can result as a complication of untreated strep throat infection. Children: Use acetaminophen (Tylenol) for fever, fussiness or discomfort. In infants over six months of age, you may use ibuprofen (Children's Motrin) instead of Tylenol. [NOTE: If your child has chronic liver or kidney disease or ever had a stomach ulcer or GI bleeding, talk with your doctor before using these medicines.] (Aspirin should never be used in anyone under 18 years of age who is ill with a fever. It may cause severe liver damage.)Adults: You may use acetaminophen (Tylenol) or ibuprofen (Motrin, Advil) to control pain or fever, unless another medicine was prescribed for this. [NOTE: If you have chronic liver or kidney disease or ever had a stomach ulcer or GI bleeding, talk with your doctor before using these medicines.] Throat lozenges or sprays (Chloraseptic and others) will reduce pain. Gargling with warm salt water will also reduce throat pain. Dissolve 1/2 teaspoon of salt in 1 glass of warm water. This is especially useful just before meals. Follow Up with your doctor or as directed by our staff if you are not improving over the next week. Get Prompt Medical Attention if any of the following occur: Fever of 100.4F (38C) oral or higher, not better with fever medication New or worsening ear pain, sinus pain or headache Painful lumps in the back of your neck Unable to swallow liquids or open your mouth wide due to throat pain Trouble breathing or noisy breathing Muffled voice New rash Penicillin V Potassium Oral tablet What is this medicine? PENICILLIN V (pen i SILL in V) is a penicillin antibiotic. It is used to treat certain kinds of bacterial infections. It will not work for colds, flu, or other viral infections. How should I use this medicine? Take this medicine by mouth with a full glass of water. Follow the directions on the prescription label. Take your medicine at regular intervals. Do not take your medicine more often than directed. Take all of your medicine as directed even if you think your are better. Do not skip doses or stop your medicine early. Talk to your contact worker regarding the use of this medicine in children. While this drug may be prescribed for selected conditions, precautions do apply. What side effects may I notice from receiving this medicine? Side effects that you should report to your doctor or health manager medicare as soon as possible: allergic reactions like skin rash or hives, swelling of the face, lips, or tongue breathing problems fever new symptoms of infection redness, blistering, peeling or loosening of the skin, including inside the mouth unusually weak or tired Side effects that usually do not require medical attention (report to your doctor or health manager medicare if they continue or are bothersome): diarrhea headache nausea, vomiting sore mouth or tongue stomach upset What may interact with this medicine? control pills methotrexate other antibiotics probenecid some vaccines What if I miss a dose? If you miss a dose, take it as soon as you can. If it is almost time for your next dose, take only that dose. Do not take double or extra doses. Where should I keep my medicine? Keep out of the reach of children. Store at room temperature between 15 and 30 degrees C (59 and 86 degrees F). Keep container tightly closed. Throw away any unused medicine after the expiration date. What should I tell my health care provider before I take this medicine? They need to know if you have any of these conditions: asthma bowel disease, like colitis eczema kidney disease an unusual or allergic reaction to penicillin, cephalosporins, other antibiotics or medicines, foods, tartrazine or other dyes, or preservatives or trying to get breast-feeding What should I watch for while using this medicine? Tell your doctor or health manager medicare if your symptoms do not improve. Do not treat diarrhea with over the counter products. Contact your doctor if you have diarrhea that lasts more than 2 days or if it is severe and watery. If you have diabetes, you may get a false-positive result for sugar in your urine. Check with your doctor or health manager medicare. control pills may not work properly while you are taking this medicine. Talk to your doctor about using an extra method of control. You have been given the following additional information: Pharyngitis, Strep (Confirmed) Penicillin V Potassium Oral tablet (Electronically signed by José Luis Ryan Dr. 02/19/2017 12:03)
--- NOTE | 2017-02-19 12:04 | ED DISCHARGE INSTRUCTIONS ---
Patient: PARAM AGUAYO General Instructions [facility] VisitID: [id number] [place] [address] 26y, F Registration Date/Time: 02/19/2017 Acute streptococcal pharyngitis INSTRUCTIONS Your Current Medications: CONTINUE TAKING THE FOLLOWING MEDICATIONS: None*. Prescription Medications: Penicillin V 500 mg: take 1 tab orally every 12 hours for 10 days. Dispense twenty (20). No refills. Follow-up: Follow up with your doctor in about two days. Call for an appointment. Screening today revealed the patient's blood pressure to be in the pre-hypertensive range. The patient should follow up with a primary care provider for blood pressure management. ADDITIONAL INFORMATION Pharyngitis: Strep [Confirmed] Your test for strep throat was positive. Strep throat is a contagious illness. It is spread by coughing, kissing or by touching others after touching your mouth or nose. Symptoms include throat pain which is worse with swallowing, aching all over, headache and fever. You will be treated with an antibiotic which should make you start to feel better within 1-2 days. Home Care: Rest at home and drink plenty of fluids to avoid dehydration. No school or work for the first two days on antibiotics. You will not be contagious after this time and if you are feeling better, you can return to school or work. Take your antibiotics for a full 10 days, even if you feel better after the first few days of treatment. This is very important to prevent heart or kidney disease that can result as a complication of untreated strep throat infection. Children: Use acetaminophen (Tylenol) for fever, fussiness or discomfort. In infants over six months of age, you may use ibuprofen (Children's Motrin) instead of Tylenol. [NOTE: If your child has chronic liver or kidney disease or ever had a stomach ulcer or GI bleeding, talk with your doctor before using these medicines.] (Aspirin should never be used in anyone under 18 years of age who is ill with a fever. It may cause severe liver damage.)Adults: You may use acetaminophen (Tylenol) or ibuprofen (Motrin, Advil) to control pain or fever, unless another medicine was prescribed for this. [NOTE: If you have chronic liver or kidney disease or ever had a stomach ulcer or GI bleeding, talk with your doctor before using these medicines.] Throat lozenges or sprays (Chloraseptic and others) will reduce pain. Gargling with warm salt water will also reduce throat pain. Dissolve 1/2 teaspoon of salt in 1 glass of warm water. This is especially useful just before meals. Follow Up with your doctor or as directed by our staff if you are not improving over the next week. Get Prompt Medical Attention if any of the following occur: Fever of 100.4F (38C) oral or higher, not better with fever medication New or worsening ear pain, sinus pain or headache Painful lumps in the back of your neck Unable to swallow liquids or open your mouth wide due to throat pain Trouble breathing or noisy breathing Muffled voice New rash Penicillin V Potassium Oral tablet What is this medicine? PENICILLIN V (pen i SILL in V) is a penicillin antibiotic. It is used to treat certain kinds of bacterial infections. It will not work for colds, flu, or other viral infections. How should I use this medicine? Take this medicine by mouth with a full glass of water. Follow the directions on the prescription label. Take your medicine at regular intervals. Do not take your medicine more often than directed. Take all of your medicine as directed even if you think your are better. Do not skip doses or stop your medicine early. Talk to your leather leveler regarding the use of this medicine in children. While this drug may be prescribed for selected conditions, precautions do apply. What side effects may I notice from receiving this medicine? Side effects that you should report to your doctor or health intensive care specialist as soon as possible: allergic reactions like skin rash or hives, swelling of the face, lips, or tongue breathing problems fever new symptoms of infection redness, blistering, peeling or loosening of the skin, including inside the mouth unusually weak or tired Side effects that usually do not require medical attention (report to your doctor or health intensive care specialist if they continue or are bothersome): diarrhea headache nausea, vomiting sore mouth or tongue stomach upset What may interact with this medicine? control pills methotrexate other antibiotics probenecid some vaccines What if I miss a dose? If you miss a dose, take it as soon as you can. If it is almost time for your next dose, take only that dose. Do not take double or extra doses. Where should I keep my medicine? Keep out of the reach of children. Store at room temperature between 15 and 30 degrees C (59 and 86 degrees F). Keep container tightly closed. Throw away any unused medicine after the expiration date. What should I tell my health care provider before I take this medicine? They need to know if you have any of these conditions: asthma bowel disease, like colitis eczema kidney disease an unusual or allergic reaction to penicillin, cephalosporins, other antibiotics or medicines, foods, tartrazine or other dyes, or preservatives or trying to get breast-feeding What should I watch for while using this medicine? Tell your doctor or health intensive care specialist if your symptoms do not improve. Do not treat diarrhea with over the counter products. Contact your doctor if you have diarrhea that lasts more than 2 days or if it is severe and watery. If you have diabetes, you may get a false-positive result for sugar in your urine. Check with your doctor or health intensive care specialist. control pills may not work properly while you are taking this medicine. Talk to your doctor about using an extra method of control. You have been given the following additional information: Pharyngitis, Strep (Confirmed) Penicillin V Potassium Oral tablet (Electronically signed by José Luis Ryan Dr. 02/19/2017 12:03)
== END 2017-02-19 12:02 | disposition home or self-care (01) ==
LOC: ED SRH 10:56
DX: J02.0 Streptococcal pharyngitis (principal); F17.210 Nicotine dependence, cigarettes, uncomplicated; F12.10 Cannabis abuse, uncomplicated
CPT/HCPCS: 90154